=== PATIENT | male | born 1955 | race Caucasian/White ===

== ENCOUNTER 2018-02-18 07:19 | Emergency (ER) | payer OTHER ==
[~2018-02-18] VITALS: Ht 172.7 cm; Wt 74.8 kg
[~2018-02-18 07:19] MED LIST: ALEVE220 M2 PO; ATORVASTATIN CA40 M1 PO; CLOPIDOGREL75 M1 PO; DAILY MULTIPLE1 EACH PO; FLUOXETINE HCL20 M2 PO; GABAPENTIN100 M2 PO; LIDOCAINE1 EACH TOP; MAGNESIUM400 M1 PO; NICOTINE PATCH1 EAC2 TOP; TAMSULOSIN HCL0.4 M1 PO; TOPROL XL25 M1 PO; TRAZODONE HCL100 M1 PO; VITAMIN B COMP1 EAC1 PO; ZETIA10 M1 PO; [UNRECOGNIZED DRUG - OTHER] PO
[2018-02-18 07:22] VITALS: BP 184/100
== END 2018-02-18 07:58 | disposition admitted as inpatient to this hospital (09) ==
LOC: ERH 07:19
DX: H93.8X3 Other specified disorders of ear, bilateral (principal)